=== PATIENT | female | born 1965 | race American Indian/Alaskan Native ===

== ENCOUNTER 2021-11-03 10:43 | Outpatient (CLI) | payer OTHER ==
--- NOTE | 2021-11-03 11:54 | XRay Report ---
RIGHT SHOULDER 3 VIEWS INDICATION: RIGHT SHOULDER PAIN. COMPARISON: None. IMPRESSION: No acute osseous or soft tissue abnormality. Moderate osteoarthritic changes are iden tified at the AC joint. LUMBOSACRAL SPINE 2 VIEWS INDICATION: Back pain. COMPARISON: None. IMPRESSION: Normal alignment. 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 Mild to moderate fac et arthropathy is identified throughout the lumbar region. Moderate hypertrophic changes are suspecte d at L4-5 and L5-S1. No acute osseous or soft tissue abnormality. BILATERAL KNEES AP STANDING INDICATION: Bilateral knee pain. COMPARISON: None. IMPRESSION: No acute osseous findings or bone lesion. Mild osteoarthritic joint space narrowing is noted in the medial compartment since. Mild bilateral tibial spine spurring. The soft tissues are unr emarkable. Signer Name: Goran Morales Jr, MD Signed: 11/03/2021 11:49 AM Workstation Name: [id number]
== END 2021-11-03 10:44 | disposition home or self-care (01) ==
LOC: XRAY 10:43
PROVIDERS: ATTEND Internal Medicine
DX: M19.011 Primary osteoarthritis, right shoulder (principal); M47.816 Spondylosis without myelopathy or radiculopathy, lumbar region; M17.0 Bilateral primary osteoarthritis of knee
CPT/HCPCS: 72100; 73565